=== PATIENT | female | born 1985 | race Two or more races ===

== ENCOUNTER 2020-07-16 14:36 | Outpatient (REF) | payer OTHER, SELFPAY ==
[2020-07-17 03:36] LABS: CT PCR NOT DETECTED (Not Detect.); NG PCR NOT DETECTED (Not Detect.)
[2020-07-17 09:45] LABS: BV Int Neg Control Negative (Negative); BV Int Pos Control Positive (Positive)
[2020-07-20 03:11] LABS: HPV mRNA E6/E7 rflx Not Detected (Not Detected)
== END 2020-07-16 14:37 | disposition home or self-care (01) ==
LOC: HO.LAB 14:36
PROVIDERS: PCP Internal Medicine; Visit Provider Advanced Practice Midwife
DX: Z01.419 Encounter for gynecological examination (general) (routine) without abnormal findings (principal); N76.0 Acute vaginitis; N89.8 Other specified noninflammatory disorders of vagina; Z20.2 Contact with and (suspected) exposure to infections with a predominantly sexual mode of transmission
CPT/HCPCS: 87480; 87491; 87510; 87591; 87624; 87625; 87660; 88142

== ENCOUNTER 2020-11-18 13:05 | Outpatient (REF) | payer OTHER, SELFPAY ==
[2020-11-20 09:38] LABS: BV Int Neg Control Negative (Negative); BV Int Pos Control Positive (Positive)
== END 2020-11-18 13:06 | disposition home or self-care (01) ==
LOC: HO.LAB 13:05
PROVIDERS: PCP Internal Medicine; Visit Provider Obstetrics & Gynecology
DX: Z11.3 Encounter for screening for infections with a predominantly sexual mode of transmission (principal); N89.8 Other specified noninflammatory disorders of vagina; B37.3 Candidiasis of vulva and vagina
CPT/HCPCS: 87480; 87510; 87660; 99212

== ENCOUNTER 2020-12-19 15:45 | Outpatient (REF) | payer OTHER, MEDICAID, SELFPAY ==
--- NOTE | ~2020-12-19 | MR_ITS ---
MRI OF THE BRAIN WITHOUT IV CONTRAST INDICATION: Migraine headache. COMPARISON: None available. TECHNIQUE: Multiplanar multisequence MR imaging of the brain was obtained without IV contrast. FINDINGS: There is no hydrocephalus, extra-axial surface collection, or herniation. No parenchymal signal abnormality. The major flow voids at the skull base are preserved. There is no acute infarct on diffusion-weighted imaging. There is no intracranial hemorrhage on the gradient recalled echo acquisition. The midline structures are normal. The cerebellar tonsils are normally positioned. The cerebellum and brainstem are normal. The craniocervical junction is normal. Osseous marrow signal intensity is homogenous. The visualized soft tissues are unremarkable. MR/MR head/brain wo con IMPRESSION: Unremarkable noncontrast MRI of the brain.
== END 2020-12-19 15:46 | disposition home or self-care (01) ==
LOC: HO.MRI 15:45
PROVIDERS: Visit Provider Internal Medicine
DX: G43.909 Migraine, unspecified, not intractable, without status migrainosus (principal)
CPT/HCPCS: 70551

== ENCOUNTER 2021-02-04 14:32 | Outpatient (REF) | payer OTHER, SELFPAY ==
[2021-02-04 15:01] LABS: MANUAL DIFF FLAG NO
[2021-02-04 15:07] LABS: Basophils Percent Auto 0.5 % (0-2); Eosinophils Absolute Auto 0.1 X10*3/uL (0.0-0.4); Eosinophils Percent Auto 1.9 % (0-4); Hematocrit 38.4 % (37-47); Hemoglobin 12.9 g/dl (12.0-16.0); Imm Gran Abs Auto 0.02 X10*3/uL (0.00-0.03); Imm Gran Pct Auto 0.3 % (0.0-0.4); Lymphocytes Absolute Auto 2.3 X10*3/uL (1.2-4.9); Lymphocytes Percent Auto 38.7 % (20-40); Mean Corpuscular HGB Conc 33.6 g/dl (31.0-35.0); Mean Corpuscular Hemoglobin 29.6 pg (27.0-33.0); Mean Corpuscular Volume 88.1 fL (80-98); Mean Platelet Volume 9.4 fL (9.4-12.3); Monocytes Absolute Auto 0.3 X10*3/uL (0.1-1.2); Monocytes Percent Auto 5.1 % (2-11); Neutrophils Absolute Auto 3.1 X10*3/uL (2.0-8.3); Neutrophils Percent Auto 53.5 % (45-73); Platelet Count 331 X10*3/uL (160-400); Red Blood Count 4.36 X10*6/uL (4.20-5.50); Red Cell Distribution Width 11.9 % (11.0-16.0); White Blood Count 5.9 X10*3/uL (4.8-10.8)
[2021-02-04 15:38] LABS: Alanine Aminotransferase 10 U/L (0-31); Albumin Level 4.3 g/dL (3.5-5.0); Alkaline Phosphatase 77 U/L (39-117); Anion Gap 11 (12-20); Aspartate Amino Transferase 16 U/L (5-31); Bilirubin Total 0.4 mg/dL (0.0-1.0); Blood Urea Nitrogen 9 mg/dL (9-16); Calcium 9.3 mg/dL (8.4-10.2); Carbon Dioxide 25 mmol/L (22-29); Chloride 107 mmol/L (96-108); Cholesterol 191 mg/dL; Estimated Glomerular Filt Rate > 60; Glucose Fasting 85 mg/dL (60-99); HDL Cholesterol 48 mg/dL; LDL Cholesterol Calculated 118 mg/dl; Potassium 4.5 mmol/L (3.3-5.1); Sodium 138 mmol/L (135-145); Total Protein 7.2 g/dL (6.5-8.0); Triglycerides 129 mg/dL
[2021-02-04 15:51] LABS: Thyroid Stimulating Hormone 0.79 uIU/mL (0.32-4.0)
[2021-02-04 16:10] LABS: Folate 18.3 ng/mL (> or = 4.0); Vitamin B12 201 pg/mL (200-900)
[2021-02-07 14:36] LABS: TS Negative Control Passed; TS Panel A 0; TS Panel B 1; TS Positive Control Passed; TSpotTB Negative (SeeBelow)
[2021-02-08 16:57] LABS: Vitamin D 25-OH, D2 <4 ng/mL; Vitamin D 25-OH, D3 14 ng/mL; Vitamin D 25-OH, Total 14 ng/mL (30-100)
== END 2021-02-04 14:33 | disposition home or self-care (01) ==
LOC: HO.LAB 14:32
PROVIDERS: PCP Internal Medicine; Visit Provider Internal Medicine
DX: Z01.84 Encounter for antibody response examination (principal); E78.5 Hyperlipidemia, unspecified; R73.02 Impaired glucose tolerance (oral); D64.9 Anemia, unspecified; E55.9 Vitamin D deficiency, unspecified; R53.83 Other fatigue
CPT/HCPCS: 36415; 80053; 80061; 82306; 82607; 82746; 84443; 85025; 86481

== ENCOUNTER 2021-03-26 15:13 | Emergency (ER) | payer OTHER, MEDICAID, SELFPAY ==
[2021-03-26 15:21] VITALS: BP 123/78; PULSE 73; RESP 16; TEMP 36.6; O2SAT 98; BMI 30.2
[2021-03-26 17:14] LABS: MANUAL DIFF FLAG NO
[2021-03-26 17:17] LABS: Basophils Percent Auto 0.2 % (0-2); Eosinophils Absolute Auto 0.1 X10*3/uL (0.0-0.4); Eosinophils Percent Auto 0.8 % (0-4); Hematocrit 39.6 % (37-47); Hemoglobin 13.3 g/dl (12.0-16.0); Imm Gran Abs Auto 0.03 X10*3/uL (0.00-0.03); Imm Gran Pct Auto 0.3 % (0.0-0.4); Lymphocytes Absolute Auto 1.9 X10*3/uL (1.2-4.9); Lymphocytes Percent Auto 20.5 % (20-40); Mean Corpuscular HGB Conc 33.6 g/dl (31.0-35.0); Mean Corpuscular Hemoglobin 29.6 pg (27.0-33.0); Mean Corpuscular Volume 88.2 fL (80-98); Mean Platelet Volume 9.3 fL (9.4-12.3); Monocytes Absolute Auto 0.5 X10*3/uL (0.1-1.2); Monocytes Percent Auto 4.9 % (2-11); Neutrophils Absolute Auto 6.7 X10*3/uL (2.0-8.3); Neutrophils Percent Auto 73.3 % (45-73); Platelet Count 330 X10*3/uL (160-400); Red Blood Count 4.49 X10*6/uL (4.20-5.50); Red Cell Distribution Width 11.9 % (11.0-16.0); White Blood Count 9.1 X10*3/uL (4.8-10.8)
[2021-03-26 17:45] LABS: Alanine Aminotransferase 13 U/L (0-31); Albumin Level 4.5 g/dL (3.5-5.0); Alkaline Phosphatase 75 U/L (39-117); Anion Gap 14 (12-20); Aspartate Amino Transferase 15 U/L (5-31); Bilirubin Direct 0.2 mg/dL (0.0-0.5); Bilirubin Total 0.4 mg/dL (0.0-1.0); Blood Urea Nitrogen 12 mg/dL (9-16); Calcium 9.7 mg/dL (8.4-10.2); Carbon Dioxide 25 mmol/L (22-29); Chloride 104 mmol/L (96-108); Creatinine Clr Calc Pharmacy 92.9; Estimated Glomerular Filt Rate > 60; Glucose Fasting 96 mg/dL (60-99); Lipase 22 U/L (8-78); Potassium 4.6 mmol/L (3.3-5.1); Sodium 138 mmol/L (135-145); Total Protein 7.7 g/dL (6.5-8.0)
--- NOTE | 2021-03-26 19:10 | ED.GENADULT ---
HPI - General Adult General Chief complaint: Headache Stated complaint: Headache/Abdominal Pain Time Seen by Provider: 03/26/21 19:05 Source: patient Limitations: no limitations History of Present Illness HPI narrative: This is a 35-year-old female who complains of a feeling of burning in her upper abdomen for the last 4 days with associated belching. The patient denies any vomiting. She denies abdominal pain per se. She notes that she has had decreased appetite and has not been eating or drinking much. She denies any constipation or diarrhea. She denies any urinary symptoms. She also has had a frontal headache for the last few days but denies any neck pain. She has not had any fever. She denies any visual changes. She notes she had a COVID test this morning which was negative. Patient's last menstrual period was a month ago Related Data Previous Rx's Medication Instructions Recorded amitriptyline 10 mg tablet 10 mg PO BEDTIME 90 Days #90 tab 11/18/20 docusate sodium 100 mg capsule 100 mg PO DAILY 90 Days #90 cap 11/18/20 (Colace) fluconazole 150 mg tablet 150 mg PO Q3D 1 Days #1 tab 11/18/20 nystatin 100,000 unit/gram topical 1 appl TOPICAL DAILY #15 g 11/18/20 cream sumatriptan succinate 50 mg tablet 50 mg PO DAILY PRN 30 Days #9 tab 02/12/21 pyridoxine (vitamin B6) 25 mg 25 mg PO TID #60 tab 03/26/21 tablet Allergies Allergy/AdvReac Type Severity Reaction Status Date / Time No Known Allergies Allergy Verified 11/18/20 13:10 [No Known Allergies*] Review of Systems Review of Systems: Yes all other systems are reviewed and are negative Constitutional: Constitutional: Reports as per HPI, Denies fever(s) and Reports headache(s) Eyes: Eyes: Reports as per HPI and Reports no additional eye complaints ENT: Reports system reviewed and no additional complaints, except as documented, Reports as per HPI, Reports headache(s), Denies nasal congestion, Denies nasal discharge and Denies sore throat Cardiovascular: Cardiovascular: Reports as per HPI, Denies chest pain and Denies dyspnea Respiratory: Respiratory: Reports as per HPI, Denies cough and Denies dyspnea Gastrointestinal: Gastrointestinal: Reports as per HPI, Denies abdominal pain (Burning/hot feeling in upper abdomen), Reports bloating (Increased belching), Denies diarrhea and Denies vomiting Genitourinary: Genitourinary: Reports as per HPI, Denies hematuria, Denies urinary frequency and Denies dysuria Musculoskeletal: Musculoskeletal: Reports no additional musculoskeletal complaints and Denies numbness Integumentary/Breasts: Skin/Breast: Reports as per HPI and Denies rash Neurologic: Reports as per HPI, Reports headache(s), Denies focal weakness, Denies numbness and Denies Sensory deficit (Neuro) Psychiatric: Psychiatric: Reports no additional psychiatric complaints and Reports as per HPI Endocrine: Endocrine: Reports no additional endocrine complaints and Reports as per HPI Hematologic/Lymphatic: Hematologic/Lymphatic: Reports no additional hematologic/lymphatic complaints, Reports as per HPI and Reports other (No peripheral edema) FOR[facility]LY [facility] Past Medical History Medical History ASCUS favor benign Constipation by delayed colonic transit Depression Fatigue Impaired glucose tolerance Insomnia Migraines Surgical History History of section Family History Family History Father Prostate cancer Mother No problems noted. Maternal Grandmother Cervical cancer Social History Social History Alcohol intake: never Advance Directives: No Advance Directives Information Provided: Yes Patient : No Gender identity: female Physical Exam Vital Signs: Vital Signs: Last Vital Signs Temp 97.8 F 03/26/21 15:21 Pulse 73 03/26/21 15:21 Resp 16 03/26/21 15:21 BP 123/78 03/26/21 15:21 Pulse Ox 98 03/26/21 15:21 Body Mass Index 30.2 Const: General: cooperative, no acute distress and alert Orientation/consciousness: patient oriented x3 HENMT: Head: Yes normal to inspection Eyes: General: appearance normal, both eyes and all related structures Eyelids: Yes eyelids normal Conjunctivae: conjunctivae normal Pupils: Equal, round and reactive pupils present Neck: Neck: Yes normal visual inspection and Yes supple Chest: Chest palpation & inspection: normal inspection of the chest Resp: Effort & Inspection: normal respiratory effort Auscultation: clear to auscultation bilaterally Cardio: Rate: regular rate Rhythm: regular rhythm Heart sounds: S1 normal heart sound present, S2 normal heart sound present, no gallops, no murmurs and no rubs GI: Palpation (GI): Soft to palpation, nontender and Other GI palpation findings present (Non-distended) Auscultation: normal bowel sounds Skin: General skin exam: no rashes or lesions noted Neuro: General: patient oriented x3, no focal motor deficits and CN's II-XI intact bilaterally Cranial nerves: Yes Equal, round and reactive pupils present Cognition (Neuro): normal cognition Motor exam (neuro): 5/5 motor strength present throughout Sensory Exam: No Sensory deficit (Neuro) Extrem: General: Yes normal to inspection and Yes no pedal edema Psych: Appearance: grossly normal Affect: normal affect Medical Decision Making MDM Narrative Medical decision making narrative: Patient with upper abdominal discomfort, no abdominal tenderness, as well as a frontal headache. Patient had not suspected she was . Labs except for urine hCG were normal. Patient was treated with Compazine and Toradol for her headache and felt better. Lab Data Result diagrams: 03/26/21 17:08 03/26/21 17:08 Labs: Lab Results 03/26/21 03/26/21 03/26/21 Range/Units 17:08 17:08 20:01 WBC 9.1 (4.8-10.8) X10*3/uL RBC 4.49 (4.20-5.50) X10*6/uL Hgb 13.3 (12.0-16.0) g/dl Hct 39.6 (37-47) % MCV 88.2 (80-98) fL MCH 29.6 (27.0-33.0) pg MCHC 33.6 (31.0-35.0) g/dl RDW 11.9 (11.0-16.0) % Plt Count 330 (160-400) X10*3/uL MPV 9.3 L (9.4-12.3) fL Immature Gran % (Auto) 0.3 (0.0-0.4) % Neut % (Auto) 73.3 H (45-73) % Lymph % (Auto) 20.5 (20-40) % Evangeline % (Auto) 4.9 (2-11) % Eos % (Auto) 0.8 (0-4) % Baso % (Auto) 0.2 (0-2) % Lymph # (Auto) 1.9 (1.2-4.9) X10*3/uL Evangeline # (Auto) 0.5 (0.1-1.2) X10*3/uL Eos # (Auto) 0.1 (0.0-0.4) X10*3/uL Baso # (Auto) 0.0 (0.0-0.2) X10*3/uL Abs Immat Gran (auto) 0.03 (0.00-0.03) X10*3/uL Absolute Neuts (auto) 6.7 (2.0-8.3) X10*3/uL Absolute Nucleated RBC 0.000 (0.0-0.012) X10*3/uL Nucleated RBC % (auto) 0.0 (0.0-0.2) /100WBC Sodium 138 (135-145) mmol/L Potassium 4.6 (3.3-5.1) mmol/L Chloride 104 (96-108) mmol/L Carbon Dioxide 25 (22-29) mmol/L Anion Gap 14 (12-20) BUN 12 (9-16) mg/dL Creatinine 0.80 (0.5-1.4) mg/dL Estim Creat Clear Calc 92.9 Estimated GFR > 60 Fasting Glucose 96 (60-99) mg/dL Calcium 9.7 (8.4-10.2) mg/dL Total Bilirubin 0.4 (0.0-1.0) mg/dL Direct Bilirubin 0.2 (0.0-0.5) mg/dL AST 15 (5-31) U/L ALT 13 (0-31) U/L Alkaline Phosphatase 75 (39-117) U/L Total Protein 7.7 (6.5-8.0) g/dL Albumin 4.5 (3.5-5.0) g/dL Lipase 22 (8-78) U/L Urine Color YELLOW Urine Appearance CLEAR Urine pH 6.0 (5.0-8.0) Ur Specific Jerome 1.025 (1.005-1.025) Urine Protein NEG (NEG-TRACE) MG/DL Urine Glucose (UA) NEG (NEG) MG/DL Urine Ketones >=80 (NEG) MG/DL Urine Blood TRACE (NEG) Urine Nitrite NEG (NEG) Ur Leukocyte Esterase NEG (NEG) Urine Test (NEGATIVE) 03/26/21 Range/Units 20:01 WBC (4.8-10.8) X10*3/uL RBC (4.20-5.50) X10*6/uL Hgb (12.0-16.0) g/dl Hct (37-47) % MCV (80-98) fL MCH (27.0-33.0) pg MCHC (31.0-35.0) g/dl RDW (11.0-16.0) % Plt Count (160-400) X10*3/uL MPV (9.4-12.3) fL Immature Gran % (Auto) (0.0-0.4) % Neut % (Auto) (45-73) % Lymph % (Auto) (20-40) % Evangeline % (Auto) (2-11) % Eos % (Auto) (0-4) % Baso % (Auto) (0-2) % Lymph # (Auto) (1.2-4.9) X10*3/uL Evangeline # (Auto) (0.1-1.2) X10*3/uL Eos # (Auto) (0.0-0.4) X10*3/uL Baso # (Auto) (0.0-0.2) X10*3/uL Abs Immat Gran (auto) (0.00-0.03) X10*3/uL Absolute Neuts (auto) (2.0-8.3) X10*3/uL Absolute Nucleated RBC (0.0-0.012) X10*3/uL Nucleated RBC % (auto) (0.0-0.2) /100WBC Sodium (135-145) mmol/L Potassium (3.3-5.1) mmol/L Chloride (96-108) mmol/L Carbon Dioxide (22-29) mmol/L Anion Gap (12-20) BUN (9-16) mg/dL Creatinine (0.5-1.4) mg/dL Estim Creat Clear Calc Estimated GFR Fasting Glucose (60-99) mg/dL Calcium (8.4-10.2) mg/dL Total Bilirubin (0.0-1.0) mg/dL Direct Bilirubin (0.0-0.5) mg/dL AST (5-31) U/L ALT (0-31) U/L Alkaline Phosphatase (39-117) U/L Total Protein (6.5-8.0) g/dL Albumin (3.5-5.0) g/dL Lipase (8-78) U/L Urine Color Urine Appearance Urine pH (5.0-8.0) Ur Specific Jerome (1.005-1.025) Urine Protein (NEG-TRACE) MG/DL Urine Glucose (UA) (NEG) MG/DL Urine Ketones (NEG) MG/DL Urine Blood (NEG) Urine Nitrite (NEG) Ur Leukocyte Esterase (NEG) Urine Test POSITIVE H (NEGATIVE) Discharge Plan Discharge Clinical Impression: , Headache Patient Disposition: Home, Self-Care Instructions: (ED), General Headache (ED) Additional Instructions: Use Tylenol for headache as needed. Start vitamins, 1 daily. Use pyridoxine as prescribed as needed for nausea. [facility] Return for any new or worsened symptoms such as vaginal bleeding, abdominal pain or fever Prescriptions: New pyridoxine (vitamin B6) 25 mg tablet 25 mg PO TID Qty: 60 RF: 0 No Action sumatriptan succinate 50 mg tablet 50 mg PO DAILY PRN (Reason: migraine headache) 30 Days Qty: 9 RF: 3 docusate sodium [Colace] 100 mg capsule 100 mg PO DAILY 90 Days Qty: 90 RF: 1 amitriptyline 10 mg tablet 10 mg PO BEDTIME 90 Days Qty: 90 RF: 1 fluconazole 150 mg tablet 150 mg PO Q3D 1 Days Qty: 1 RF: 1 nystatin 100,000 unit/gram cream 1 appl topical DAILY Qty: 15 RF: 0
[2021-03-26] MEDS: Prochlorperazine Edisylate 10 MG/2 ML VIAL IVPUSH (19:42)
[2021-03-26] MEDS: Ketorolac Tromethamine 15 MG/ML VIAL IVPUSH (19:42)
[2021-03-26] MEDS: 0.9 % Sodium Chloride 1,000 ML 999 ML IV (19:42)
[2021-03-26] MEDS: LORazepam 2 MG/ML VIAL 0.5 MG IVPUSH (19:44)
[2021-03-26 20:19] LABS: Glucose Urine UA NEG (NEG); Leukocyte Esterase Urine NEG (NEG); Nitrite Urine NEG (NEG); Specific Gravity - Urine 1.025 (1.005-1.025); UACC Culture Trigger NO; UPreg QC Valid YES; Urine Blood TRACE (NEG); Urine Ketones >=80 MG/DL (NEG); Urine Pregnancy POSITIVE (NEGATIVE); Urine Protein NEG (NEG-TRACE)
[2021-03-26 20:20] LABS: Appearance Urine CLEAR; Color Urine YELLOW
[2021-03-26 20:41] LABS: Bacteria Urine TRACE /LPF; Mucus Urine 1+ /LPF; RBC Urine 0-2 /HPF (0); Squamous Epithelial Cell Urine TRACE /LPF; WBC Urine 0-2 /HPF (0-4)
== END 2021-03-26 21:19 | disposition home or self-care (01) ==
PROVIDERS: Emergency Provider Emergency Medicine; PCP Internal Medicine
DX: R51.9 Headache, unspecified (principal); Z33.1 Pregnant state, incidental
CPT/HCPCS: 36415; 80048; 80076; 81001; 81025; 83690; 85025; 96361; 96374; 96375; 99284; J1885; J2060

== ENCOUNTER 2021-03-28 14:42 | Outpatient (REF) | payer OTHER, SELFPAY | END 2021-03-28 14:43 | disposition home or self-care (01) | LOC: HO.LAB 14:42 | PROVIDERS: PCP Internal Medicine; Visit Provider Advanced Practice Midwife | DX: Z32.01 Encounter for pregnancy test, result positive (principal) | CPT/HCPCS: 36415; 81025; 84702; 99202 ==

== ENCOUNTER 2021-04-04 10:25 | Outpatient (REF) | payer OTHER, SELFPAY ==
--- NOTE | ~2021-04-04 | US_ITS ---
EXAMINATION: OBSTETRICAL ULTRASOUND, FIRST TRIMESTER HISTORY: 35-year-old with irregular menstruation Viability LMP: Unknown COMPARISON: None TECHNIQUE: Real time transabdominal imaging with color and M-mode Doppler. FINDINGS: A single, live IUP CRL of 9.8 mm c/w 7.1wks is noted. Heart Rate: 149 beats per minute. Both maternal ovaries are seen and appear normal. GESTATIONAL AGE: 1. GA from LMP: N/A wks 2. GA from AUA: 7.1 wks ESTIMATED DATE OF DELIVERY: 1. SALOMON from LMP: N/A 2. SALOMON from AUA: 11/20/2021 US/US OB <= 14 weeks fetus IMPRESSION: 1. A single live IUP 2. CRL corresponds to 7.1 weeks of gestation. Her an SALOMON of 11/20/2021. 3. Normal ovaries Discussion: No specific ultrasound followup appears needed at this time. The patient was advised that ultrasound cannot guarantee the of a normal infant. Thank you very much for this referral. This note was generated with a voice recognition program. Please excuse any errors which may have been overlooked during my review of this note. Sometimes these errors may affect the content or meaning of a given sentence.
== END 2021-04-04 10:26 | disposition home or self-care (01) ==
LOC: HO.US 10:25
PROVIDERS: PCP Internal Medicine; Visit Provider Advanced Practice Midwife
DX: N92.6 Irregular menstruation, unspecified (principal)
CPT/HCPCS: 76801

== ENCOUNTER 2021-04-29 16:41 | Outpatient (REF) | payer OTHER, SELFPAY ==
--- NOTE | ~2021-04-29 | US_ITS ---
EXAMINATION: US VENOUS ULTRASOUND WITH DOPPLER LOWER EXTREMITY, BILATERAL CLINICAL INFORMATION: Pain right leg. COMPARISON: None TECHNIQUE: Ultrasound of the deep veins is performed from the hip to the calf with compression sonography and color and pulse Doppler assessment. Spectral analysis with color-flow imaging is performed. FINDINGS: RIGHT: There is normal venous compression and respiratory variation and augmented flow. The visualized common femoral vein, superficial femoral vein, profunda femoral vein, popliteal vein, and the trifurcation region shows no evidence of deep venous thrombosis. There is no significant popliteal fossa cyst. LEFT: There is normal venous compression and respiratory variation and augmented flow. The visualized common femoral vein, superficial femoral vein, profunda femoral vein, popliteal vein, and the trifurcation region shows no evidence of deep venous thrombosis. There is no significant popliteal fossa cyst. If the patient's symptoms persist, followup ultrasound in 5 days 7 days might be of value to exclude proximal propagation from a non-visualized calf vein. US/US venous duplex LE BI IMPRESSION: No DVT demonstrated in the bilateral lower extremity.
--- NOTE | ~2021-04-29 | XR_ITS ---
EXAMINATION: XR LUMBOSACRAL SPINE CLINICAL INFORMATION: Low back pain. COMPARISON: None TECHNIQUE: Three views of the lumbosacral spine. FINDINGS: There is normal lumbar lordosis. The vertebral heights, alignment and disc heights are normal. No visible acute fracture, dislocation or lytic process seen. The soft tissues are normal. XR/XR lumbar spine 2-3V IMPRESSION: Unremarkable lumbar spine exam.
== END 2021-04-29 16:42 | disposition home or self-care (01) ==
LOC: HO.US 16:41
PROVIDERS: PCP Internal Medicine; Visit Provider Internal Medicine
DX: M54.5 Low back pain (principal); M79.604 Pain in right leg; M79.605 Pain in left leg
CPT/HCPCS: 72100; 93970

== ENCOUNTER 2021-08-26 17:07 | Outpatient (REF) | payer OTHER, SELFPAY ==
[2021-08-26 18:56] LABS: Influenza A PCR NEGATIVE (Negative); Influenza B PCR NEGATIVE (Negative); Resp Syncy Virus RNA Qual PCR NEGATIVE (Negative); SARS COV2 PCR INHOUSE POSITIVE (Negative)
== END 2021-08-26 17:08 | disposition home or self-care (01) ==
LOC: HO.LAB 17:07
PROVIDERS: Visit Provider Hospitalist
DX: Z20.822 Contact with and (suspected) exposure to COVID-19 (principal)
CPT/HCPCS: 0241U